=== PATIENT | female | born 1980 | race Hispanic/Latino ===

== ENCOUNTER 2023-11-27 11:51 | Emergency (ER) | payer OTHER ==
[2023-11-27] MEDS ORDERED: ONDANSETRON 4 MG/2 ML VIAL ONE (12:34)
[2023-11-27] MEDS ORDERED: HYDROMORPHONE HCL 1 MG/ML INJ ONE (12:35)
[2023-11-27] MEDS ORDERED: KETOROLAC 30 MG/ML INJ ONE (12:35)
--- NOTE | 2023-11-27 12:56 | EDPHYS ---
Physician Documentation [facility] Name: Olive Stratton Age: 43 yrs Sex: Female : 1980 Arrival Date: 11/27/2023 Time: 11:51 Bed 13 Private MD: ED Physician Ming Welch HPI: 11/26 12:53 This 43 yrs old Female presents to ER via Ambulatory with complaints of Back sp3 Pain. 12:53 43-year-old female with history of chronic back pain, degenerative disc disease, sp3 rheumatoid arthritis who suffered a fall ground-level mechanical 2 days ago was seen here and had negative imaging now returns for continued acute on chronic pain. No further trauma or new symptoms noted. ROS otherwise negative.. Historical: - Allergies: 12:01 tramadol; ll1 12:01 Ultram; ll1 - PMHx: 12:01 Anxiety; CHRONIC LOW BACK PAIN; Degenerative disc disease; Rheumatoid Arthritis; ll1 - PSHx: 12:01 abdominal; back; section; Cholecystectomy; thyroid; wrist; ll1 - Immunization history:: Adult Immunizations up to date. - Infectious Disease History:: Denies. - Social history:: Smoking status: Patient reports the use of cigarette tobacco products, smokes .2 packs per day. ROS: 12:54 Constitutional: Negative for fever, chills, and weight loss, Eyes: Negative for injury, sp3 pain, redness, and discharge, Neck: Negative for injury, pain, and swelling, Cardiovascular: Negative for chest pain, palpitations, and edema, Respiratory: Negative for shortness of breath, cough, wheezing, and pleuritic chest pain, Abdomen/GI: Negative for abdominal pain, nausea, vomiting, diarrhea, and constipation, MS/Extremity: Negative for injury and deformity, Skin: Negative for injury, rash, and discoloration, Neuro: Negative for headache, weakness, numbness, tingling, and seizure, Psych: Negative for depression, anxiety, suicide ideation, homicidal ideation, and hallucinations, Allergy/Immunology: Negative for hives, rash, and allergies, Endocrine: Negative for neck swelling, polydipsia, polyuria, polyphagia, and marked weight changes, Hematologic/Lymphatic: Negative for swollen nodes, abnormal bleeding, and unusual bruising, Exam: 12:54 Constitutional: This is a well developed, well nourished patient who is awake, alert, sp3 and in no acute distress. Head/Face: Normocephalic, atraumatic. Eyes: Pupils equal round and reactive to light, extra-ocular motions intact. Lids and lashes normal. Conjunctiva and sclera are non-icteric and not injected. Cornea within normal limits. Periorbital areas with no swelling, redness, or edema. Neck: Trachea midline, no thyromegaly or masses palpated, and no cervical lymphadenopathy. Supple, full range of motion without nuchal rigidity, or vertebral point tenderness. No Meningismus. Chest/axilla: Normal chest wall appearance and motion. Nontender with no deformity. No lesions are appreciated. Cardiovascular: Regular rate and rhythm with a normal S1 and S2. No gallops, murmurs, or rubs. Normal PMI, no JVD. No pulse deficits. Respiratory: Lungs have equal breath sounds bilaterally, clear to auscultation and percussion. No rales, rhonchi or wheezes noted. No increased work of breathing, no retractions or nasal flaring. Abdomen/GI: Soft, non-tender, with normal bowel sounds. No distension or tympany. No guarding or rebound. No evidence of tenderness throughout. Skin: Warm, dry with normal turgor. Normal color with no rashes, no lesions, and no evidence of cellulitis. MS/ Extremity: Pulses equal, no cyanosis. Neurovascular intact. Full, normal range of motion. Neuro: Awake and alert, GCS 15, oriented to person, place, time, and situation. Cranial nerves II-XII grossly intact. Motor strength 5/5 in all extremities. Sensory grossly intact. Cerebellar exam normal. Normal gait. Psych: Awake, alert, with orientation to person, place and time. Behavior, mood, and affect are within normal limits. 12:54 Back: Back exam normal. Positive pain on flexion. Distal neurovascular exam is normal., Vital Signs: 12:07 BP 125 / 90; Pulse 73; Resp 16; Temp 98; Pulse Ox 100% on R/A; Weight 83.91 kg; Height ll1 5 ft. 4 in. ; Pain 10/10; 13:00 Pain 6/10; nj1 13:00 BP 129 / 83; Pulse 65; Resp 16; Pulse Ox 100% ; Pain 6/10; nj1 12:07 Body Mass Index 31.75 (83.91 kg, 162.56 cm) ll1 12:07 Pain Scale: Adult ll1 13:00 Pain Scale: Adult nj1 13:00 Pain Scale: Adult nj1 MDM: 12:20 Patient medically screened. sp3 12:54 Data reviewed: vital signs, nurses notes, old medical records. ED course: Prior CT sp3 abdomen pelvis reviewed from 2 days ago demonstrates no acute abnormality. I believe this patient has acute on chronic back pain from her fall. No further imaging is indicated. We will administer Dilaudid, ketorolac and Zofran IV x 1 and subsequently discharge patient home. She is already on oxycodone at home and already has pain management established.. 11/26 12:27 Order name: IV Saline Lock; Complete Time: 12:44 sp3 Administered Medications: 12:40 Drug: Ondansetron IVP 4 mg IVP once; over 2 minutes Route: IVP; Site: right antecubital;nj1 13:00 Follow up: Response: No adverse reaction nj1 12:40 Drug: Ketorolac IVP 30 mg IVP once Route: IVP; Site: right antecubital; nj1 13:00 Follow up: Response: No adverse reaction; Pain is decreased nj1 12:42 Drug: HYDROmorphone IVP 1 mg IVP once Route: IVP; Site: right antecubital; nj1 13:00 Follow up: Pain 6/10 Adult; Response: No adverse reaction; Pain is decreased nj1 Disposition Summary: 11/27/23 12:55 Discharge Ordered Notes: Location: Home sp3 Condition: Stable sp3 Diagnosis - Low back pain sp3 Followup: sp3 - With: Private Physician - When: Upon discharge from the Emergency Department - Reason: Continuance of care Discharge Instructions: - Discharge Summary Sheet sp3 - Chronic Back Pain sp3 Forms: - Medication Reconciliation Form sp3 - Antibiotic Education sp3 - Prescription Opioid Use sp3 - Patient Portal Instructions sp3 - Leadership Thank You Letter sp3 Prescriptions: - Diclofenac Sodium 75 mg Oral Tablet Sustained Release - take 1 tablet ORAL route 2 times per day; 30 tablet; Refills: 0, Product sp3 Selection Permitted Signatures: Ulices Bernstein RN RN ll1 Ming Welch MD MD sp3 Veto, Brianna, RN RN nj1
--- NOTE | 2023-11-27 12:56 | ER ---
Nurse's Notes [facility] Name: Olive Stratton Age: 43 yrs Sex: Female : 1980 Arrival Date: 11/27/2023 Time: 11:51 Bed 13 Private MD: Diagnosis: Low back pain Presentation: 11/26 12:07 Chief complaint: Patient states: Back pain continues from last visit here. Pain ll1 radiates down R leg for 2 days now. Fell while putting clothes on 2 days ago. Hit L side of ribs, bruising noted. Coronavirus screen: Client denies travel out of the [place] in the last 14 days. At this time, the client does not indicate any symptoms associated with coronavirus-19. Ebola Screen: Patient denies travel to an Ebola-affected area in the 21 days before illness onset. Initial Sepsis Screen: Does the patient meet any 2 criteria? No. Patient's initial sepsis screen is negative. Does the patient have a suspected source of infection? No. Patient's initial sepsis screen is negative. Risk Assessment: Do you want to hurt yourself or someone else? Patient reports no desire to harm self or others. Onset of symptoms was November 25, 2023. 12:07 Method Of Arrival: Ambulatory ll1 12:07 Acuity: PRANAV 3 ll1 Triage Assessment: 12:09 General: Appears distressed, uncomfortable, Behavior is calm, cooperative, appropriate ll1 for age. Pain: Complains of pain in back Pain radiates to right leg Pain currently is 10 out of 10 on a pain scale. Quality of pain is described as aching, sharp, throbbing. Musculoskeletal: Reports pain in back and right leg. Historical: - Allergies: 12:01 tramadol; ll1 12:01 Ultram; ll1 - PMHx: 12:01 Anxiety; CHRONIC LOW BACK PAIN; Degenerative disc disease; Rheumatoid Arthritis; ll1 - PSHx: 12:01 abdominal; back; section; Cholecystectomy; thyroid; wrist; ll1 - Immunization history:: Adult Immunizations up to date. - Infectious Disease History:: Denies. - Social history:: Smoking status: Patient reports the use of cigarette tobacco products, smokes .2 packs per day. Screenin:21 Abuse screen: Denies threats or abuse. Nutritional screening: No deficits noted. ap3 Tuberculosis screening: No symptoms or risk factors identified. 12:40 [facility] ED Fall Risk Assessment (Adult) History of falling in the last 3 months, nj1 including since admission Yes- single mechanical fall (1 pt) Confusion or Disorientation No (0 pts) Intoxicated or Sedated No (0 pts) Impaired Gait No (0 pts) Mobility Assist Device Used No (0 pt) Altered Elimination No (0 pt) Score/Fall Risk Level 0 - 2 = Low Risk Oriented to surroundings, Maintained a safe environment, Assessed \T\ reinforced patient's understanding of fall precautions, Hourly rounding (assess needs \T\ fall precautionary measures) done. Assessment: 12:20 General: Appears uncomfortable, Behavior is calm, cooperative, appropriate for age. ap3 Pain: Complains of pain in right leg and back Pain currently is 10 out of 10 on a pain scale. Neuro: Level of Consciousness is awake, alert, obeys commands, Oriented to person, place, time, situation, Appropriate for age. Cardiovascular: Patient's skin is warm and dry. Respiratory: Airway is patent Respiratory effort is even, unlabored, Respiratory pattern is regular, symmetrical. 13:00 Reassessment: Patient appears in no apparent distress at this time. Patient is alert, nj1 oriented x 3, equal unlabored respirations, skin warm/dry/pink. Vital Signs: 12:07 BP 125 / 90; Pulse 73; Resp 16; Temp 98; Pulse Ox 100% on R/A; Weight 83.91 kg; Height ll1 5 ft. 4 in. ; Pain 10/10; 13:00 Pain 6/10; nj1 13:00 BP 129 / 83; Pulse 65; Resp 16; Pulse Ox 100% ; Pain 6/10; nj1 12:07 Body Mass Index 31.75 (83.91 kg, 162.56 cm) ll1 12:07 Pain Scale: Adult ll1 13:00 Pain Scale: Adult nj1 13:00 Pain Scale: Adult nj1 ED Course: 12:00 Patient arrived in ED. mr 12:01 Arm band placed on Patient placed in an exam room, on a stretcher. ll1 12:03 Ming Welch MD is Attending Physician. sp3 12:09 Triage completed. ll1 12:21 Patient has correct armband on for positive identification. Call light in reach. Side ap3 rails up X 1. Adult w/ patient. Pulse ox on. NIBP on. 12:25 Brianna Laws, RN is Primary Nurse. nj1 12:40 Provided Education on: call light, fall precautions. nj1 12:40 Inserted saline lock: 20 gauge in right antecubital area, using aseptic technique. nj1 13:00 No provider procedures requiring assistance completed. nj1 13:00 IV discontinued, intact, bleeding controlled, Pressure dressing applied. nj1 Administered Medications: 12:40 Drug: Ondansetron IVP 4 mg IVP once; over 2 minutes Route: IVP; Site: right antecubital;nj1 13:00 Follow up: Response: No adverse reaction nj1 12:40 Drug: Ketorolac IVP 30 mg IVP once Route: IVP; Site: right antecubital; nj1 13:00 Follow up: Response: No adverse reaction; Pain is decreased nj1 12:42 Drug: HYDROmorphone IVP 1 mg IVP once Route: IVP; Site: right antecubital; nj1 13:00 Follow up: Pain 6/10 Adult; Response: No adverse reaction; Pain is decreased nj1 Medication: 13:00 VIS not applicable for this client. nj1 Outcome: 12:55 Discharge ordered by . sp3 13:00 Discharged to home ambulatory, with family, nj1 13:00 Condition: stable nj1 13:00 Discharge instructions given to patient, Instructed on discharge instructions, follow up and referral plans. medication usage, Demonstrated understanding of instructions, follow-up care, medications, Prescriptions given X 1, 13:05 Patient left the ED. nj1 Signatures: Alyson Nicolas, Frederick Reg mr Mary Kay Bryant, RN RN ap3 Ulices Bernstein RN RN ll1 Ming Welch MD MD sp3 Brianna Laws, LIZZ RN nj1 Corrections: (The following items were deleted from the chart) 12:20 12:07 Chief complaint: Patient states: Back pain continues from last visit here. Pain ll1 radiates down R leg for 2 days now. ll1 13:34 13:34 Pain 6/10 Adult; Response: No adverse reaction; Pain is decreased nj1 nj1
[2023-11-27 13:15] VITALS: BP 125/90; TEMP 98; O2SAT 100
== END 2023-11-27 13:05 | disposition home or self-care (01) ==
LOC: ER 11:51
DX: M54.50 Low back pain, unspecified (principal)
CPT/HCPCS: 96375; 96374; 99284; J1170; J2405